=== PATIENT | male | born 1985 | race Two or more races ===

== ENCOUNTER 2024-12-26 15:47 | Emergency (ER) | payer OTHER ==
[~2024-12-26] VITALS: Ht 175.3 cm; Wt 72.6 kg
== END 2024-12-26 19:10 | disposition home or self-care (01) ==
LOC: ER 15:50
DX: S63.591A Other specified sprain of right wrist, initial encounter (principal); V49.88XA Car occupant (driver) (passenger) injured in other specified transport accidents, initial encounter; Y93.89 Activity, other specified; Y92.89 Other specified places as the place of occurrence of the external cause; Y99.8 Other external cause status; M79.641 Pain in right hand